=== PATIENT | female | born 1970 | race Caucasian/White ===

== ENCOUNTER → 2017-01-08 16:50 | Outpatient (CLI) | payer MEDICAID ==
[2015-04-10 08:11] VITALS: BMI 41.0
[~2017-01-08 16:50] MED LIST: ATENOLOL25 MG NG; BAYER CHEWABLE81 MG PO; COLACE100 MG PO; CRESTOR10 MG PO; DESERYL100 MG PO; KLONOPIN1 MG PO; NORCO 10/325 TA1 TA1 PO; PRAVACHOL40 MG PO; TOPAMAX50 MG PO; XANAX0.5 MG PO; ZIAC 10-6.25 MG1 TAB PO; ZOCOR20 MG PO
== END | disposition home or self-care (01) ==
LOC: D.MAMMO 16:15
DX: Z12.31 Encounter for screening mammogram for malignant neoplasm of breast (principal)

== ENCOUNTER → 2017-09-18 20:38 | Outpatient (CLI) | payer BC ==
[2015-04-10 08:11] VITALS: BMI 41.0
== END | disposition home or self-care (01) ==
LOC: D.MAMMO 11:30
DX: Z12.31 Encounter for screening mammogram for malignant neoplasm of breast (principal)

== ENCOUNTER → 2020-02-18 23:00 | Outpatient (CLI) | payer BC ==
[2015-04-10 08:11] VITALS: BMI 41.0
== END | disposition home or self-care (01) ==
LOC: D.MAMMO 09:45
PROVIDERS: ATTEND Obstetrics & Gynecology
DX: Z12.31 Encounter for screening mammogram for malignant neoplasm of breast (principal)